=== PATIENT | male | born 1995 ===

== ENCOUNTER 2017-04-07 02:55 | Emergency (ER) | payer OTHER, MEDICAID ==
[2017-04-07 02:55] VITALS: BMI 28.2
[2017-04-07 04:00] VITALS: BP 116/88; PULSE 87; RESP 18; TEMP 97.8; O2SAT 99
[2017-04-07] MEDS ORDERED: Enoxaparin 80 mg Syringe SC STA (04:21)
--- NOTE | 2017-04-07 04:23 | C.PDOC ---
History Of Present Illness Patient is a 21 year old male who presents to the ER with a complaint of right leg swelling and ecchymosis since Monday. Patient states his leg slipped between a truck and loading dock while at work. Patient reports having focal tenderness at the time but since then bruising has increased. Patient states he currently has minimal pain and is able to ambulate. Denies any other injury. (- ) change in sensation. Time Seen by Provider: 04/07/17 03:22 Chief Complaint (Nursing): Lower Extremity Problem/Injury History Per: Patient History/Exam Limitations: no limitations Onset/Duration Of Symptoms: Days (Since Monday) Current Symptoms Are (Timing): Still Present Recent travel outside of the [place]: No - Knee Description Of Injury: Other (Right, stuck between truck and loading dock) - Ankle/Foot Description Of Injury: Other (Right, stuck between truck and loading dock) Past Medical History Reviewed: Historical Data, Nursing Documentation, Vital Signs Vital Signs: Last Vital Signs Temp 97.8 F 04/07/17 03:14 Pulse 87 04/07/17 03:14 Resp 18 04/07/17 04:46 BP 116/88 04/07/17 03:14 Pulse Ox 99 04/07/17 04:39 - Medical History PMH: No Chronic Diseases Surgical History: Tonsillectomy - [facility] Procedures MYRINGOTOMY NEC (04/18/02) TONSILLECTOMY/ADENOIDEC (04/18/02) Family History: States: Unknown Family Hx - Social History Hx Tobacco Use: No Hx Alcohol Use: No Hx Substance Use: No - Immunization History Hx Tetanus Toxoid Vaccination: Yes (Td given in 2011) Hx Influenza Vaccination: Yes Hx Pneumococcal Vaccination: No Review Of Systems Musculoskeletal: Positive for: Other (Right leg swelling/ecchymosis) Physical Exam - Physical Exam Appears: Well, Non-toxic, No Acute Distress Skin: Warm, Dry Head: Atraumatic, Normacephalic Eye(s): bilateral: Normal Inspection, EOMI Nose: Normal Oral Mucosa: Moist Chest: Symmetrical Cardiovascular: Rhythm Regular Respiratory: Normal Breath Sounds, No Accessory Muscle Use, Other (Speaking in complete sentences) Extremity: Normal ROM, Tenderness (mild), No Calf Tenderness, Capillary Refill, No Deformity, Swelling (Right lower leg), Other (Abrasions to medial aspect of right knee) Pulses: Left Dorsalis Pedis: Normal, Right Dorsalis Pedis: Normal Neurological/Psych: Oriented x3, Normal Speech, Normal Motor, Normal Sensation, Other (No focal deficits) Gait: Steady ED Course And Treatment O2 Sat by Pulse Oximetry: 99 (Room air) Pulse Ox Interpretation: Normal Progress Note: Lovenox administered. Right leg x-ray ordered, results showed no acute abnormalies. Patient is in no acute distress and is able to ambulate normally. NO SOB. Not tachycardia. No hypoxia. Case discussed with Dr. Elise, agreed upon plan and discharge patient. Will instruct patient to return to ER at 8 am for vascular study. Disposition - Disposition Disposition: HOME/ ROUTINE Disposition Time: 04:22 Condition: STABLE Additional Instructions: Return at 8am for ultrasound of the leg. Rest, ice and elevate the area. Instructions: Contusion in Adults (ED) - Clinical Impression Clinical Impression: Contusion of leg - Scribe Statement The provider has reviewed the documentation as recorded by the Scribe Toro Monroy All medical record entries made by the Hamiltonibllu were at my direction and personally dictated by me. I have reviewed the chart and agree that the record accurately reflects my personal performance of the history, physical exam, medical decision making, and the department course for this patient. I have also personally directed, reviewed, and agree with the discharge instructions and disposition.
[2017-04-07] MEDS ORDERED: Enoxaparin 40 mg Syringe ONE (04:36)
[2017-04-07] MEDS ORDERED: Enoxaparin 60 mg Syringe ONE (04:36)
--- NOTE | 2017-04-07 09:42 | RAD ---
PROCEDURE: Radiographs of the right tibia and fibula. HISTORY: pain COMPARISON: None available. TECHNIQUE: Frontal and lateral views obtained. FINDINGS: BONES: No fracture or destructive lesion. JOINT SPACES: Unremarkable. OTHER FINDINGS: None. IMPRESSION: No evidence of acute fracture or dislocation or bony lesion.
== END 2017-04-07 04:46 | disposition home or self-care (01) ==
LOC: C.ER 02:55
DX: S80.11XA Contusion of right lower leg, initial encounter (principal); W23.1XXA Caught, crushed, jammed, or pinched between stationary objects, initial encounter; Y93.89 Activity, other specified; Y92.89 Other specified places as the place of occurrence of the external cause; Y99.0 Civilian activity done for income or pay
CPT/HCPCS: 73590; 96372; 99284; J1650

== ENCOUNTER 2017-04-07 11:49 | Emergency (ER) | payer OTHER, MEDICAID ==
[2017-04-07 11:59] VITALS: BMI 30.2
[2017-04-07 12:00] VITALS: RESP 18; TEMP 97.5; O2SAT 99
--- NOTE | 2017-04-07 12:26 | C.PDOC ---
History Of Present Illness 21 year old patient returns to the ED for a Doppler test. Patient was seen here this morning for right lower leg bruising and swelling after trauma. Patient states he took Lovenox this morning. Patient denies fever, numbness, or weakness. Time Seen by Provider: 04/07/17 12:12 Chief Complaint (Nursing): Medical Clearance History Per: Patient History/Exam Limitations: no limitations Onset/Duration Of Symptoms: Other Current Symptoms Are (Timing): Still Present Severity: Mild Pain Scale Rating Of: 3 Recent travel outside of the [place]: No Past Medical History Reviewed: Historical Data, Nursing Documentation, Vital Signs Vital Signs: Last Vital Signs Temp 97.5 F L 04/07/17 11:59 Pulse 72 04/07/17 11:59 Resp 18 04/07/17 11:59 BP 112/70 04/07/17 11:59 Pulse Ox 99 04/07/17 12:39 Surgical History: Tonsillectomy - [facility] Procedures MYRINGOTOMY NEC (04/18/02) TONSILLECTOMY/ADENOIDEC (04/18/02) Family History: States: Unknown Family Hx - Social History Hx Tobacco Use: No Hx Alcohol Use: No Hx Substance Use: No - Immunization History Hx Tetanus Toxoid Vaccination: Yes (Td given in 2011) Hx Influenza Vaccination: Yes Hx Pneumococcal Vaccination: No Review Of Systems Except As Marked, All Systems Reviewed And Found Negative. Constitutional: Negative for: Fever Musculoskeletal: Positive for: Other (right leg swelling) Skin: Positive for: Bruising (right lower leg) Neurological: Negative for: Weakness, Numbness Physical Exam - Physical Exam Appears: Non-toxic, No Acute Distress Skin: Warm, Dry, Ecchymosis (extensive; to upper medial aspect of the right lower leg; skin intact; no signs of infection.) Head: Atraumatic, Normacephalic Neck: Normal ROM, Supple Chest: Symmetrical Cardiovascular: Rhythm Regular Respiratory: Normal Breath Sounds, No Rales, No Rhonchi, No Wheezing Extremity: Normal ROM, No Calf Tenderness, No Deformity, Swelling (right lower leg) Neurological/Psych: Oriented x3, Normal Motor, Normal Sensation Gait: Steady ED Course And Treatment O2 Sat by Pulse Oximetry: 99 (room air) Pulse Ox Interpretation: Normal Disposition Counseled Patient/Family Regarding: Studies Performed, Diagnosis, Need For Followup - Disposition Referrals: your,pmd [Other] Disposition: HOME/ ROUTINE Disposition Time: 13:44 Condition: GOOD Instructions: Hematoma (ED) - Clinical Impression Clinical Impression: Hematoma - Scribe Statement The provider has reviewed the documentation as recorded by the Scribe Fatou Kimball Provider Attestation: All medical record entries made by the Scribe were at my direction and personally dictated by me. I have reviewed the chart and agree that the record accurately reflects my personal performance of the history, physical exam, medical decision making, and the department course for this patient. I have also personally directed, reviewed, and agree with the discharge instructions and disposition.
[2017-04-07 13:51] VITALS: BP 112/69; PULSE 66
--- NOTE | 2017-04-09 09:23 | VASCLAB ---
PROCEDURE: Right Lower Extremity Venous Duplex Exam. HISTORY: swelling PRIORS: None. TECHNIQUE: Right common femoral, femoral, popliteal and posterior tibial, peroneal and great saphenous veins were evaluated. Flow was assessed with color Doppler, compressibility, assessment of phasic flow and augmentation response. Report prepared by LAYLA Martinez, RVT FINDINGS: RIGHT: 1. Common Femoral Vein: 1.1. Compressibility - Fully compressible: Thrombus - None: Flow - Phasic: Augmentation -Normal: Reflux - None. 2. Femoral Vein: 2.1. Compressibility - Fully compressible: Thrombus - None: Flow - Phasic: Augmentation -Normal: Reflux - None. 3. Popliteal Vein: 3.1. Compressibility - Fully compressible: Thrombus - None: Flow - Phasic: Augmentation -Normal: Reflux - None. 4. Posterior Tibial Vein: 4.1. Compressibility - Fully compressible: Thrombus - None: Flow - Phasic: Augmentation -Normal: Reflux - None. 5. Peroneal Vein: 5.1. Compressibility - Fully compressible: Thrombus - None: Flow - Phasic: Augmentation -Normal: Reflux - None. 6. Great Saphenous Vein: 6.1. Compressibility - Fully compressible: Thrombus -None: Flow - Phasic: Augmentation - Normal: Reflux - None. OTHER FINDINGS: IMPRESSION: No evidence of deep or superficial vein thrombosis of the right lower extremity with excellent venous flow. Normal valve function noted of the right side. Normal venous flow noted in the left common femoral vein.
== END 2017-04-07 13:51 | disposition home or self-care (01) ==
LOC: C.ER 11:49
DX: Z01.89 Encounter for other specified special examinations (principal); S80.11XD Contusion of right lower leg, subsequent encounter; W23.1XXD Caught, crushed, jammed, or pinched between stationary objects, subsequent encounter

== ENCOUNTER 2017-07-12 00:27 | Emergency (ER) | payer MEDICAID, OTHER ==
[2017-07-12 00:28] VITALS: BMI 30.2
[2017-07-12 00:36] VITALS: RESP 18; TEMP 98
[2017-07-12 01:58] VITALS: BP 124/74; PULSE 72; O2SAT 99
--- NOTE | 2017-07-12 04:57 | C.PDOC ---
History Of Present Illness Patient presents to the ER after sustaining a puncture wound to the right foot today at 14:00. Patient reports walking down the street today where he stepped on a nail that went through his shoe. Patient reports bleeding at the time and came in tonight because the wound became painful. Denies fever, chills, weakness , numbness, or any other complaints. Time Seen by Provider: 07/12/17 00:49 Chief Complaint (Nursing): Foreign Body History Per: Patient History/Exam Limitations: no limitations Onset/Duration Of Symptoms: Hrs Current Symptoms Are (Timing): Still Present Severity: Mild Recent travel outside of the [place]: No Additional History Per: Patient Past Medical History Reviewed: Historical Data, Nursing Documentation, Vital Signs Vital Signs: Last Vital Signs Temp 98 F 07/12/17 00:31 Pulse 72 07/12/17 01:57 Resp 18 07/12/17 01:57 BP 124/74 07/12/17 01:57 Pulse Ox 99 07/12/17 04:57 Surgical History: Tonsillectomy - [facility] Procedures MYRINGOTOMY NEC (04/18/02) TONSILLECTOMY/ADENOIDEC (04/18/02) Family History: States: Unknown Family Hx - Social History Hx Tobacco Use: No Hx Alcohol Use: No Hx Substance Use: No - Immunization History Hx Tetanus Toxoid Vaccination: Yes (Td given in 2011) Hx Influenza Vaccination: Yes Hx Pneumococcal Vaccination: No Review Of Systems Except As Marked, All Systems Reviewed And Found Negative. Constitutional: Negative for: Fever, Chills Skin: Positive for: Other (Puncture wound to the right foot) Neurological: Negative for: Weakness, Numbness Physical Exam - Physical Exam Appears: Non-toxic, No Acute Distress Skin: Warm, Dry Head: Atraumatic, Normacephalic Eye(s): bilateral: Normal Inspection Extremity: Normal ROM, Capillary Refill (<2secs), No Swelling, Other (Puncture wound to the plantar aspect of the right foot. No evidence of cellulitis) Neurological/Psych: Oriented x3, Normal Speech, Normal Cognition, Normal Motor, Normal Sensation Gait: Steady ED Course And Treatment O2 Sat by Pulse Oximetry: 99 (RA) Pulse Ox Interpretation: Normal Medical Decision Making Medical Decision Making: Impression: Patient presents to the ER after sustaining a puncture wound to the right foot today at 14:00. Plans: * Cipro * Motrin Disposition - Disposition Referrals: Jo Cox MD [Primary Care Provider] - Disposition: HOME/ ROUTINE Disposition Time: 01:00 Condition: GOOD Additional Instructions: clean the wound twice a day with soap and water. Take antibiotics until completed. Prescriptions: Ciprofloxacin [Cipro] 1 tab PO BID #14 tab Ibuprofen [Motrin] 600 mg PO TID #21 tab Instructions: Puncture Wound (ED) Forms: [facility] (Persian) - Clinical Impression Clinical Impression: Puncture wound - Scribe Statement The provider has reviewed the documentation as recorded by the Scribe Elmer emerson All medical record entries made by the Scribe were at my direction and personally dictated by me. I have reviewed the chart and agree that the record accurately reflects my personal performance of the history, physical exam, medical decision making, and the department course for this patient. I have also personally directed, reviewed, and agree with the discharge instructions and disposition.
== END 2017-07-12 01:58 | disposition home or self-care (01) ==
LOC: SUPCPDRO 00:27 → C.ER 00:27
DX: S91.331A Puncture wound without foreign body, right foot, initial encounter (principal); W45.0XXA Nail entering through skin, initial encounter; Y92.410 Unspecified street and highway as the place of occurrence of the external cause

== ENCOUNTER 2018-07-11 19:48 | Emergency (ER) | payer MEDICAID ==
[2018-07-11 19:48] VITALS: BMI 30.2
[2018-07-11 20:00] VITALS: BP 122/88; PULSE 80; RESP 22; TEMP 98.2; O2SAT 97
--- NOTE | 2018-07-11 20:49 | C.PDOC ---
History Of Present Illness 22 y/o male presents to ED with c/o nausea after accidentally drinking urine. Patient states he was at work earlier today and had left his cup with small amt of his drink unattended; pt returned to his drink, drank some and noticed taste and odor of urine. Patient denies vomiting, abdominal pain, fever, chills or any other complaints at this time. Time Seen by Provider: 07/11/18 20:27 Chief Complaint (Nursing): Ingestion, Accidental History Per: Patient History/Exam Limitations: no limitations Onset/Duration Of Symptoms: Hrs Current Symptoms Are (Timing): Still Present Past Medical History Reviewed: Historical Data, Nursing Documentation, Vital Signs Vital Signs: Last Vital Signs Temp 98.2 F 07/11/18 19:57 Pulse 80 07/11/18 19:57 Resp 22 07/11/18 19:57 BP 122/88 07/11/18 19:57 Pulse Ox 97 07/12/18 12:19 - Medical History PMH: No Chronic Diseases Surgical History: Tonsillectomy - [facility] Procedures MYRINGOTOMY NEC (04/18/02) TONSILLECTOMY/ADENOIDEC (04/18/02) Family History: States: No Known Family Hx - Social History Hx Tobacco Use: No Hx Alcohol Use: No Hx Substance Use: No - Immunization History Hx Tetanus Toxoid Vaccination: Yes (Td given in 2011) Hx Influenza Vaccination: Yes Hx Pneumococcal Vaccination: No Review Of Systems Constitutional: Negative for: Fever, Chills Gastrointestinal: Positive for: Nausea. Negative for: Vomiting, Abdominal Pain , Diarrhea Skin: Negative for: Rash Neurological: Negative for: Weakness, Numbness Physical Exam - Physical Exam Appears: Non-toxic, No Acute Distress Skin: Warm, Dry, No Rash Head: Atraumatic, Normacephalic Eye(s): bilateral: Normal Inspection Oral Mucosa: Moist Cardiovascular: Rhythm Regular Respiratory: Normal Breath Sounds, No Rales, No Rhonchi, No Wheezing Gastrointestinal/Abdominal: Soft, No Tenderness, No Guarding, No Rebound Neurological/Psych: Oriented x3, Normal Speech, Normal Cognition ED Course And Treatment O2 Sat by Pulse Oximetry: 97 (RA) Pulse Ox Interpretation: Normal Medical Decision Making Medical Decision Making: pt requested to 'be tested' after accidental ingestion of urine. pt advised no need for any testing and to f/u pmd. Disposition - Disposition Disposition: HOME/ ROUTINE Disposition Time: 20:47 Condition: GOOD Additional Instructions: Please watch your drinks at work for any tampering. Follow up with your primary care doctor in a few days. Forms: [facility] (Tristanian), General Discharge Instructions - Clinical Impression Clinical Impression: Encounter for medical assessment - PA / SONG WRITER / Resident Statement MD/DO has reviewed & agrees with the documentation as recorded. - Scribe Statement The provider has reviewed the documentation as recorded by the Hamiltoniblul Machuca All medical record entries made by the Hamiltoniblul were at my direction and personally dictated by me. I have reviewed the chart and agree that the record accurately reflects my personal performance of the history, physical exam, medical decision making, and the department course for this patient. I have also personally directed, reviewed, and agree with the discharge instructions and disposition.
== END 2018-07-11 20:56 | disposition home or self-care (01) ==
LOC: C.ER 19:48
DX: Z04.8 Encounter for examination and observation for other specified reasons (principal)